=== PATIENT | male | born 1965 | race Caucasian/White ===

== ENCOUNTER 2017-04-30 13:20 | Emergency (ER) | payer OTHER, BC ==
[~2017-04-30] VITALS: Ht 185.4 cm; Wt 139.4 kg
[~2017-04-30 13:20] MED LIST: ACID CONTROL150 MG PO; CARAFATE100 MG/ML PO; MOTRIN600 MG PO; PERCOCET 5/31 TABLET PO; SKELAXIN800 MG PO
[2017-04-30] MEDS ORDERED: TRAMADOL HCL50 MG PO (15:27)
[2017-04-30] MEDS ORDERED: SKELAXIN800 MG PO (15:27)
[2017-04-30 15:42] VITALS: BP 148/96
== END 2017-04-30 15:43 | disposition home or self-care (01) ==
LOC: EME 13:20
DX: S63.501A Unspecified sprain of right wrist, initial encounter (principal); S39.012A Strain of muscle, fascia and tendon of lower back, initial encounter; M43.6 Torticollis; R51 Headache; V49.40XA Driver injured in collision with unspecified motor vehicles in traffic accident, initial encounter; Y92.410 Unspecified street and highway as the place of occurrence of the external cause
CPT/HCPCS: 72100; 73110; 99281; 99283